=== PATIENT | male | born 1960 | race Caucasian/White ===

== ENCOUNTER 2017-10-03 18:46 | Emergency (ER) | payer SELFPAY ==
[2017-10-03] MEDS ORDERED: Diphtheria,Pertussis(Acell),Tetanus Vaccine 0.5 ML Syringe IM ONE (19:00)
[2017-10-03] MEDS ORDERED: Take Home: Amoxicillin/Clavulanate K 875-125 MG Tab, 2 Tab Pack PO ONE (19:18)
--- NOTE | 2017-10-04 19:00 | EDM.PDOC ---
ED HPI GENERAL MEDICAL PROBLEM - General Chief Complaint: General Stated Complaint: Fish Hook in Right Thumb Time Seen by Provider: 10/03/17 19:00 Source of Information: Reports: Patient History Limitations: Reports: No Limitations - History of Present Illness INITIAL COMMENTS - FREE TEXT/NARRATIVE: Pt. states that he got a fish hook stuck in his L thumb. He states that his tetanus is not up date. Onset: Today Right thumb Pain Score (Numeric/FACES): 3 - Related Data Allergies Allergy/AdvReac Type Severity Reaction Status Date / Time No Known Allergies Allergy Verified 10/03/17 18:53 Home Meds: Home Meds . [No Known Home Meds] 10/03/17 [History] Past Medical History - Past Health History Medical/Surgical History: Denies Medical/Surgical History Social & Family History - Tobacco Use Smoking Status *Q: Never Smoker Second Hand Smoke Exposure: No - Caffeine Use Caffeine Use: Reports: Coffee - Recreational Drug Use Recreational Drug Use: No ED ROS GENERAL - Review of Systems Review Of Systems: See Below Constitutional: Reports: No Symptoms HEENT: Reports: No Symptoms Respiratory: Reports: No Symptoms Cardiovascular: Reports: No Symptoms Endocrine: Reports: No Symptoms GI/Abdominal: Reports: No Symptoms : Reports: No Symptoms Musculoskeletal: Reports: No Symptoms Skin: Reports: No Symptoms Neurological: Reports: No Symptoms Psychiatric: Reports: No Symptoms Hematologic/Lymphatic: Reports: No Symptoms Immunologic: Reports: No Symptoms ED EXAM, GENERAL - Physical Exam Exam: See Below Extremities: Normal Range of Motion, Non-Tender, Other (fishing lure is stuck in the pt. L thumb attached via a treble hook) ED GENERAL MEDICAL PROCEDURES - Additional/Other Procedure(s) Other (Free Text) Procedure(s): The pt. hand was cleansed with chlorhexidine and normal saline before and after removal of fishing lure. The thumb was locally anesthetized with 1% lidocaine and removed with hemostats. Course - Vital Signs Last Recorded V/S: Last Vital Signs Temp 36.2 C 10/03/17 18:50 Pulse 60 10/03/17 18:50 Resp 18 10/03/17 18:50 BP 161/79 H 10/03/17 18:50 Pulse Ox 98 10/03/17 18:50 - Orders/Labs/Meds Orders: Active Orders 24 hr Category Date Time Status Vaccines to be Administered [RC] PER UNIT ROUTINE Care 10/03/17 19:00 Active Meds: Medications Discontinued Medications Generic Name Dose Route Start Last Admin Trade Name Luna PRN Reason Stop Dose Admin Amoxicillin/Clavulanate Potassium 2 packet 10/03/17 19:18 10/03/17 19:26 Take Home: Amox/Clavulanate 875-12, 2 Tab Pac PO 10/03/17 19:19 2 packet ONETIME ONE Administration Diphtheria/Tetanus/Acell Pertussis 0.5 ml 10/03/17 19:00 10/03/17 19:08 Adacel IM 10/03/17 19:01 0.5 ml .ONCE ONE Administration Lidocaine HCl 5 ml 10/03/17 18:59 10/03/17 19:10 Xylocaine-Mpf 1% INJECT 10/03/17 19:00 5 ml ONETIME ONE Administration Departure - Departure Time of Disposition: 19:29 Disposition: Home, Self-Care 01 Clinical Impression: Fish hook injury of finger of left hand - Discharge Information Instructions: Puncture Wound Referrals: Jess Aguirre MD [Primary Care Provider] - Forms: ED Department Discharge Additional Instructions: Follow-up in clinic in 10-14 days, sooner if redness, swelling or discharge. Augmentin 875mg twice daily for 7 days. - My Orders Last 24 Hours: My Active Orders 10/03/17 19:00 Vaccines to be Administered [RC] PER UNIT ROUTINE - Assessment/Plan Last 24 Hours: My Active Orders 10/03/17 19:00 Vaccines to be Administered [RC] PER UNIT ROUTINE
== END 2017-10-03 19:29 | disposition home or self-care (01) ==
LOC: VM.ED 18:46
DX: S60.352A Superficial foreign body of left thumb, initial encounter (principal); W45.8XXA Other foreign body or object entering through skin, initial encounter; Z23 Encounter for immunization
CPT/HCPCS: 90471; 90715; 99283; A9270-GY